=== PATIENT | female | born 1960 | race Caucasian/White ===

== ENCOUNTER → 2016-08-27 | Outpatient (CLI) | payer OTHER ==
[~2016-08-27] MED LIST: ACIPHEX20 MG PO; AMBIEN CR 12.12.5 MG PO; ANTI-FUNGAL1% TP; CALCIUM 1200 W/1 SGL PO; CALCIUM600 MG PO; CARDI-OMEGA1000 MG PO; CRESTOR20 MG PO; DEXILANT60 MG PO; EFFEXOR 75M75 MG/TAB PO; FLEXERIL10 MG PO; FOSAMAX70 MG PO; KETOROLAC10 MG PO; LEVOTHYROXIN0.088 MG PO; LEVOXYL0.088 MG PO; LISINOPRIL20 MG PO; MEVACOR40 MG PO; NEXIUM 40MG40 MG PO; NORCO 325 MG-51 TAB PO; PERCOCET 500 MG1 TAB PO; PREDNISONE20 MG PO; PRILOSEC 20MG20 MG PO; PRINIVIL20 MG PO; ULTRAM 50MG TAB50 MG PO; VITAMIN D 50,1.25 MG PO; ZANTAC 150MG T150 MG PO
== END ==
LOC: COL.VAS 07:51
DX: I10 Essential (primary) hypertension (principal); I51.7 Cardiomegaly; R07.89 Other chest pain; R06.02 Shortness of breath; I34.0 Nonrheumatic mitral (valve) insufficiency

== ENCOUNTER 2018-07-31 18:32 | Emergency (ER) | payer SELFPAY ==
[~2018-07-31] VITALS: Ht 154.9 cm; Wt 90.9 kg
[2018-07-31 18:38] VITALS: TEMP 97.7
[2018-07-31] MEDS ORDERED: ASPIRIN 81M81 MG/TA2 PO (19:12)
[2018-07-31] MEDS ORDERED: RT ADVAIR 228 DISKUS IH (19:13)
[2018-07-31] MEDS ORDERED: CLARITIN 1010 MG/TAB PO (19:13)
[2018-07-31] MEDS ORDERED: PROAIR HFA0.09 MG/AC IH (19:14)
[2018-07-31 20:01] VITALS: BP 154/80; PULSE 75
== END 2018-07-31 20:07 | disposition home or self-care (01) ==
LOC: COL.ER 18:32
DX: J06.9 Acute upper respiratory infection, unspecified (principal); R42 Dizziness and giddiness; Z79.82 Long term (current) use of aspirin; Z79.51 Long term (current) use of inhaled steroids
CPT/HCPCS: J8540

== ENCOUNTER 2018-10-08 10:00 | Day surgery (SDC) | payer SELFPAY ==
[~2018-10-08] VITALS: Ht 154.9 cm; Wt 101.8 kg
[~2018-10-08 10:00] MED LIST changes: +ASPIRIN 81M81 MG/TA2 PO; +CLARITIN 1010 MG/TAB PO; +PROAIR HFA0.09 MG/AC IH; +RT ADVAIR 228 DISKUS IH
[2018-10-08] MEDS ORDERED: TOPROL XL100 MG PO (10:19)
[2018-10-08] MEDS ORDERED: PROBIOTIC FORMU1 CAP PO (10:19)
[2018-10-08 10:43] VITALS: BP 126/86; PULSE 93; TEMP 98.5
[2018-10-08 12:15] VITALS: BP 140/83; PULSE 16; TEMP 98.4
--- NOTE | 2018-10-08 12:15 | NUR ---
Pt to GI bay 5 via cart from ENDO. Pt awake and alert. Pt denies pain or nausea. in room. Muffin and juice given. Will continue to monitor. Call light within reach.
[2018-10-08 12:30] VITALS: BP 135/80; PULSE 81
--- NOTE | 2018-10-08 12:30 | NUR ---
Pt continues to rest. Denies needs. Call light within reach.
[2018-10-08 12:45] VITALS: BP 132/80; PULSE 77
--- NOTE | 2018-10-08 12:45 | NUR ---
PATIENT HAS NO COMPLAINTS, WANTS IV OUT. VS APPEAR STABLE. WILL TAKE OUT IV. WAITING ON DR TO SEE PATIENT.
--- NOTE | 2018-10-08 13:13 | NUR ---
Pt escorted to private car via wheel chair. Pt accompanied home by her .
== END 2018-10-08 13:14 | disposition home or self-care (01) ==
LOC: SDCO 10:00
DX: Z12.11 Encounter for screening for malignant neoplasm of colon (principal); D12.2 Benign neoplasm of ascending colon; D12.5 Benign neoplasm of sigmoid colon; K57.30 Diverticulosis of large intestine without perforation or abscess without bleeding; K92.1 Melena; K64.1 Second degree hemorrhoids; K22.2 Esophageal obstruction; K44.9 Diaphragmatic hernia without obstruction or gangrene; K21.9 Gastro-esophageal reflux disease without esophagitis; E78.00 Pure hypercholesterolemia, unspecified; I10 Essential (primary) hypertension; K58.0 Irritable bowel syndrome with diarrhea; F32.9 Major depressive disorder, single episode, unspecified; F17.210 Nicotine dependence, cigarettes, uncomplicated; Z88.5 Allergy status to narcotic agent; Z88.0 Allergy status to penicillin; Z91.018 Allergy to other foods; Z90.49 Acquired absence of other specified parts of digestive tract; Z86.010 Personal history of colon polyps
CPT/HCPCS: C1726; J2250; J2405; J3010; J7030

== ENCOUNTER → 2018-11-11 | Outpatient (CLI) | payer OTHER ==
[~2018-11-11] MED LIST changes: +PROBIOTIC FORMU1 CAP PO; +TOPROL XL100 MG PO
== END ==
LOC: COL.RAD 07:29
DX: K59.00 Constipation, unspecified (principal); R19.7 Diarrhea, unspecified
CPT/HCPCS: A9541

== ENCOUNTER 2020-06-18 09:55 | Day surgery (SDC) | payer MEDICAID ==
[~2020-06-18] VITALS: Ht 154.9 cm; Wt 107.1 kg
[2020-06-18] VITALS (10 sets, daily range): BP systolic 98–137; BP diastolic 56–94; PULSE 65–70; TEMP 97.7
[2020-06-18 10:33] LABS: HEMATOCRIT 46.9 % (37.0-47.0); HEMOGLOBIN 15.7 g/dl (12.5-16.0); MEAN CELL VOLUME 96 fl (80.0-100.0); MEAN CORPUSCULAR HEMOGLOBIN 32 pg (27.0-31.0); MEAN CORPUSCULAR HGB CONC 34 g/dl (33.0-37.0); MEAN PLATELET VOLUME 9.3 fl (7.4-10.4); PLATELET COUNT 339 K/mm3 (130-400); RED BLOOD COUNT 4.87 M/mm3 (4.10-5.30); REDCELL DISTRIBUTION WIDTH-CV 13.3 % (11.5-14.5)
[2020-06-18 10:43] LABS: CALCIUM 9.1 mg/dL (8.4-10.2); CREATININE, serum 0.7 (0.52-1.25); POTASSIUM 3.7 mmol/L (3.4-5.0)
[2020-06-18 10:49] LABS: PROTHROMBIN TIME 11.4 SECONDS (9.7-12.8)
[2020-06-18] MEDS ORDERED: ANORO IH (10:58)
[2020-06-18] MEDS ORDERED: LEVOXYL0.112 MG PO (10:59)
[2020-06-18] MEDS ORDERED: NORVASC 5MG5 MG/TAB PO (11:00)
[2020-06-18] MEDS ORDERED: PROTONIX20 MG PO (11:01)
[2020-06-18] MEDS ORDERED: COLESTID 1GM1 G PO (11:02)
--- NOTE | 2020-06-18 12:03 | NUR ---
SEE MERGE DOCUMENTATION FOR MEDICATION ADMINISRATION TIMES AND INTRA/POST PROCEDURE SEDATION ASSESSMENTS. RIGHT HAND BARBEAU TEST POSITIVE.
--- NOTE | 2020-06-18 15:24 | NUR ---
DC instructions reviewed with pt and , both express understanding. Air has been removed from TR band in 2-4ml increments without issue or bleeding. Site dressed with 2x2 and bandaid. Pt sent with arm board. IV DC'd with catheter intact and bleeding controlled at site. Pt moves about room with steady gait, no c/o dizziness or lightheadedness. She is assisted out by wheelchair to 's car.
== END 2020-06-18 15:25 | disposition home or self-care (01) ==
LOC: COL.CAR 09:55
PROVIDERS: Internal Medicine Cardiovascular Disease
DX: R07.89 Other chest pain (principal); E78.2 Mixed hyperlipidemia; I10 Essential (primary) hypertension; J44.9 Chronic obstructive pulmonary disease, unspecified; I34.0 Nonrheumatic mitral (valve) insufficiency; E07.9 Disorder of thyroid, unspecified; F17.210 Nicotine dependence, cigarettes, uncomplicated; K21.9 Gastro-esophageal reflux disease without esophagitis; Z79.899 Other long term (current) drug therapy; Z88.5 Allergy status to narcotic agent; Z88.2 Allergy status to sulfonamides
CPT/HCPCS: J1644; J2250; J3010; Q9967